=== PATIENT | male | born 1995 | race Hispanic/Latino ===

== ENCOUNTER 2017-07-24 11:59 | Emergency (ER) | payer MEDICAID ==
[2017-07-24] MEDS ORDERED: Lidocaine 1% 50 ML MDV INJECT ONE (12:17)
--- NOTE | 2017-07-24 12:22 | EDM.PDOC ---
ED HPI GENERAL MEDICAL PROBLEM - General Chief Complaint: Lower Extremity Injury/Pain Stated Complaint: BLOW DART STUCK IN FOOT Time Seen by Provider: 07/24/17 12:18 Source of Information: Reports: Patient History Limitations: Reports: No Limitations - History of Present Illness INITIAL COMMENTS - FREE TEXT/NARRATIVE: Patient is a 21-year-old male presents ED complaining of a blow dark impaled to the left calcaneus. Patient states he accidentally impaled himself when moving his foot away from a puppy that was biting his foot. Patient did consume some alcohol and attempted to remove with no prevail. Pain is minimal. Denies any sensory/motor deficits distally. Tetanus status up-to-date. He offers no additional complaints. Left Posterior Feet Pain Score (Numeric/FACES): 8 - Related Data Allergies Allergy/AdvReac Type Severity Reaction Status Date / Time No Known Allergies Allergy Verified 12/19/16 04:52 Past Medical History Gastrointestinal History: Reports: Gastritis, Helicobacter Pylori Psychiatric History: Reports: Anxiety, Depression - Past Surgical History GI Surgical History: Reports: Cholecystectomy, Colonoscopy Other GI Surgeries/Procedures: patient treated with protonix for 3 months. Social & Family History - Tobacco Use Smoking Status *Q: Current Every Day Smoker Years of Tobacco use: 2 Packs/Tins Daily: 1 Used Tobacco, but Quit: No - Caffeine Use Caffeine Use: Reports: None - Recreational Drug Use Recreational Drug Use: Yes Recreational Drug Type: Reports: Marijuana/Hashish Recreational Drug Use Frequency: Daily Review of Systems - Review of Systems Review Of Systems: ROS reveals no pertinent complaints other than HPI. ED EXAM, GENERAL - Physical Exam Exam: See Below Exam Limited By: No Limitations General Appearance: Alert, WD/WN, No Apparent Distress Ears: Hearing Grossly Normal Nose: Normal Inspection Throat/Mouth: Normal Voice, No Airway Compromise Neck: Normal Inspection, Supple Respiratory/Chest: No Respiratory Distress, No Accessory Muscle Use Cardiovascular: Normal Peripheral Pulses, Regular Rate, Rhythm Peripheral Pulses: 2+: Posterior Tibial (L) Extremities: Other (Bloated or measuring approximately 5 inches impaled in the left heel.4 inches sticking out. No sensory motor deficits distally. Pain localized. No redness, purulent drainage, or significant swelling present.) Neurological: Alert, Oriented, CN II-XII Intact, Normal Cognition, No Motor/ Sensory Deficits Psychiatric: Normal Affect, Normal Mood Skin Exam: Warm, Dry, Normal Color Course - Vital Signs Last Recorded V/S: Last Vital Signs Temp 98 F 07/24/17 12:07 Pulse 96 07/24/17 12:07 Resp 18 07/24/17 12:07 BP 146/90 H 07/24/17 12:07 Pulse Ox 99 07/24/17 12:07 - Orders/Labs/Meds Orders: Active Orders 24 hr Category Date Time Status Calcaneous Lt [CR] Stat Exams 07/24/17 12:17 Taken Meds: Medications Discontinued Medications Generic Name Dose Route Start Last Admin Trade Name Rocio PRN Reason Stop Dose Admin Cephalexin 500 mg 07/24/17 13:22 07/24/17 13:43 Keflex PO 07/24/17 13:23 500 mg ONETIME ONE Administration Lidocaine HCl 50 ml 07/24/17 12:17 07/24/17 12:56 Xylocaine 1% INJECT 07/24/17 12:18 50 ml ONETIME ONE Administration - Re-Assessments/Exams Free Text/Narrative Re-Assessment/Exam: Tetanus status up-to-date. Ordered lidocaine and x-ray of the left calcaneus. Site was anesthetized with 1% lidocaine in a wheel pattern utilizing approximately 8 mls of solution. X-ray revealed arrow shaped blow dart embedded in the soft tissue no bony involvement. Attempted to pull the blow dart out with no success. Had to make small incision to the lateral and medial aspect of the shaft of the blow dart prior to removing to the cut tissue away. Allowing to pullout with issues. Bleeding minimal. No complications. Wound will be irrigated by nursing staff. Dressing applied. No sutures required. Will allow to heal by secondary intentions. Ordered Keflex 500 mg by mouth. Will discharge patient home with instructions as documented. Departure - Departure Time of Disposition: 13:23 Disposition: Home, Self-Care 01 Condition: Good Clinical Impression: Foreign body in foot Qualifiers: Encounter type: initial encounter Laterality: left Qualified Code(s): S90.852A - Superficial foreign body, left foot, initial encounter - Discharge Information Referrals: PCP,None [Primary Care Provider] - Forms: ED Department Discharge Additional Instructions: Cleanse site twice daily with soap and water, pat dry, reapply traumatic ointment, and dressing. Wound will have to heal by secondary intentions from inside out. Keep area clean and dry. Do not soak wound. Take the full course of Keflex as prescribed. Utilize Tylenol and ibuprofen in alternating fashion for pain. Return to the ED for any new or worsening symptoms. - My Orders Last 24 Hours: My Active Orders 07/24/17 12:17 Calcaneous Lt [CR] Stat - Assessment/Plan Last 24 Hours: My Active Orders 07/24/17 12:17 Calcaneous Lt [CR] Stat
[2017-07-24 12:27] VITALS: BP 146/90
[2017-07-24] MEDS ORDERED: Cephalexin 500 MG Cap PO ONE (13:22)
--- NOTE | 2017-07-25 07:41 | CR ---
Left calcaneus: Two views of the left calcaneus are obtained. Arrow is seen which presumably represents the metallic foreign body as noted in the clinical history. No acute bony abnormality is identified. Impression: 1. Metallic foreign body within the soft tissues of the left calcaneus. 2. No acute bony abnormality is identified. Diagnostic code #3
== END 2017-07-24 13:50 | disposition home or self-care (01) ==
LOC: JD.ED 11:59
DX: S90.852A Superficial foreign body, left foot, initial encounter (principal); F17.210 Nicotine dependence, cigarettes, uncomplicated; Z90.49 Acquired absence of other specified parts of digestive tract; W45.8XXA Other foreign body or object entering through skin, initial encounter
CPT/HCPCS: 28192; 73650; 99284; A9270; 99283

== ENCOUNTER 2018-01-21 00:03 | Emergency (ER) | payer SELFPAY ==
[2018-01-21 00:11] VITALS: BP 132/77
[2018-01-21] MEDS ORDERED: Pantoprazole 40 MG Vial IVPUSH ONE (00:29)
[2018-01-21] MEDS ORDERED: Sodium Chloride 0.9% 1,000 ML IV SCH (00:30)
[2018-01-21] MEDS ORDERED: Ondansetron 4 MG/2 ML SDV IVPUSH ONE (00:32)
--- NOTE | 2018-01-21 00:34 | EDM.PDOC ---
ED HPI GENERAL MEDICAL PROBLEM - General Chief Complaint: Gastrointestinal Problem Stated Complaint: [facility] Time Seen by Provider: 01/21/18 00:15 Source of Information: Reports: Patient History Limitations: Reports: No Limitations - History of Present Illness INITIAL COMMENTS - FREE TEXT/NARRATIVE: This is a 22-year-old male. He has a history of an upper GI bleed thought to be due to H. pylori. He was on antibiotics for that and seemed to clear it up. He was seen about a year ago for another episode of upper GI bleed placed on Prilosec and I believe another course of antibiotics. Tonight around 11:45 PM he had an episode of vomiting up fresh blood. He apparently has been very stressed out since January 12 where he was arrested for a felony but he didn't tell me what felony. He does have fresh cut rucker to his left forearm and he says is due to this being arrested. He complains of centralized burning in his chest. She denies any nausea at this time. He denies any black or tarry looking stools. No significant cough no fever no chills no upper respiratory symptoms. Chest Pain Score (Numeric/FACES): 7 - Related Data Allergies Allergy/AdvReac Type Severity Reaction Status Date / Time No Known Allergies Allergy Verified 01/21/18 00:12 Home Meds: Home Meds Doxycycline [Vibramycin] 100 mg PO BID #28 tab 01/21/18 [Rx] Omeprazole 40 mg PO BID #28 cap.sr 01/21/18 [Rx] Ondansetron HCl [Zofran] 4 mg PO Q8H PRN #12 ml 01/21/18 [Rx] metroNIDAZOLE [Flagyl] 500 mg PO Q12H #28 tab 01/21/18 [Rx] Past Medical History Gastrointestinal History: Reports: Gastritis, Helicobacter Pylori Psychiatric History: Reports: Anxiety, Depression - Past Surgical History HEENT Surgical History: Reports: Tonsillectomy GI Surgical History: Reports: Cholecystectomy, Colonoscopy Other GI Surgeries/Procedures: patient treated with protonix for 3 months. Social & Family History - Tobacco Use Smoking Status *Q: Current Every Day Smoker Years of Tobacco use: 2 Packs/Tins Daily: 1 Used Tobacco, but Quit: No - Caffeine Use Caffeine Use: Reports: None - Recreational Drug Use Recreational Drug Use: Yes Recreational Drug Type: Reports: Marijuana/Hashish Recreational Drug Use Frequency: Daily ED ROS GENERAL - Review of Systems Review Of Systems: See Below Constitutional: Denies: Fever, Chills HEENT: Reports: No Symptoms Respiratory: Reports: Cough. Denies: Shortness of Breath, Wheezing Cardiovascular: Reports: Chest Pain Endocrine: Reports: No Symptoms GI/Abdominal: Reports: Abdominal Pain, Hematemesis, Nausea, Vomiting. Denies: Black Stool, Bloody Stool, Diarrhea : Reports: No Symptoms Musculoskeletal: Reports: No Symptoms Skin: Reports: No Symptoms Neurological: Reports: No Symptoms Psychiatric: Reports: No Symptoms Hematologic/Lymphatic: Reports: No Symptoms ED EXAM, GI/ABD - Physical Exam Exam: See Below Exam Limited By: No Limitations General Appearance: Alert, WD/WN, No Apparent Distress Eyes: Bilateral: Normal Appearance Ears: Normal External Exam, Normal Canal, Normal TMs Nose: Normal Inspection Throat/Mouth: Normal Inspection, Normal Lips, Normal Oropharynx, Normal Voice, No Airway Compromise Head: Normocephalic Neck: Supple Respiratory/Chest: No Respiratory Distress, Lungs Clear, Normal Breath Sounds Cardiovascular: Regular Rate, Rhythm, No Murmur GI/Abdominal Exam: Soft, Other (Mild epigastric soreness on palpation but no lower abdominal tenderness, no guarding rigidity or rebound noted. He is not distended.) Back Exam: Full Range of Motion Extremities: Normal Range of Motion, Other (Noted on his left forearm he has about 12-15 2-3 inch long superficial lacerations that appear to be several days old. He denies any cutting on any other extremity.) Neurological: Alert, Oriented Psychiatric: Anxious Skin Exam: Warm, Dry Course - Vital Signs Last Recorded V/S: Last Vital Signs Temp 97.7 F 01/21/18 00:08 Pulse 70 01/21/18 00:08 Resp 18 01/21/18 00:08 BP 132/77 01/21/18 00:08 Pulse Ox 97 01/21/18 00:08 - Orders/Labs/Meds Orders: Active Orders 24 hr Category Date Time Status Sodium Chloride 0.9% [Normal Saline] 1,000 ml Med 01/21/18 00:30 Active IV ASDIRECTED Medication Orders Sodium Chloride (Normal Saline) 1,000 mls @ 1,000 mls/hr IV ASDIRECTED ALTON Last Admin: 01/21/18 00:44 Dose: 1,000 mls/hr Labs: Laboratory Tests 01/21/18 01/21/18 01/21/18 Range/Units 00:25 00:25 00:25 WBC 14.57 H (4.23-9.07) K/mm3 RBC 4.96 (4.63-6.08) M/mm3 Hgb 15.3 (13.7-17.5) gm/L Hct 44.2 (40.1-51.0) % MCV 89.1 (79.0-92.2) fl MCH 30.8 (25.7-32.2) pg MCHC 34.6 (32.2-35.5) g/dl RDW Std Deviation 41.6 (35.1-43.9) fL Plt Count 295 (163-337) K/mm3 MPV 9.9 (9.4-12.3) fl Neut % (Auto) 68.7 H (34.0-67.9) % Lymph % (Auto) 19.6 L (21.8-53.1) % [place] % (Auto) 8.7 (5.3-12.2) % Eos % (Auto) 2.5 (0.8-7.0) Baso % (Auto) 0.2 (0.1-1.2) % Neut # (Auto) 9.99 H (1.78-5.38) K/mm3 Lymph # (Auto) 2.86 (1.32-3.57) K/mm3 [place] # (Auto) 1.27 H (0.30-0.82) K/mm3 Eos # (Auto) 0.37 (0.04-0.54) K/mm3 Baso # (Auto) 0.03 (0.01-0.08) K/mm3 Manual Slide Review Normal smear Sodium 140 (136-145) mEq/L Potassium 3.5 (3.5-5.1) mEq/L Chloride 104 (98-107) mEq/L Carbon Dioxide 27 (21-32) mEq/L Anion Gap 12.5 (5-15) BUN 10 (7-18) mg/dL Creatinine 0.9 (0.7-1.3) mg/dL Est Cr Clr Drug Dosing 152.22 mL/min Estimated GFR (MDRD) > 60 (>60) mL/min BUN/Creatinine Ratio 11.1 L (14-18) Glucose 97 (74-106) mg/dL Calcium 9.3 (8.5-10.1) mg/dL Total Bilirubin 0.3 (0.2-1.0) mg/dL AST 26 (15-37) U/L ALT 32 (16-63) U/L Alkaline Phosphatase 104 (46-116) U/L Total Protein 7.4 (6.4-8.2) g/dl Albumin 4.1 (3.4-5.0) g/dl Globulin 3.3 gm/dL Albumin/Globulin Ratio 1.2 (1-2) Lipase 177 (73-393) U/L H. pylori IgG Antibody Positive H (NEGATIVE) Meds: Medications Generic Name Dose Route Start Last Admin Trade Name Freq PRN Reason Stop Dose Admin Sodium Chloride 1,000 mls @ 1,000 mls/hr 01/21/18 00:30 01/21/18 00:44 Normal Saline IV 1,000 mls/hr ASDIRECTED ALTON Administration Discontinued Medications Generic Name Dose Route Start Last Admin Trade Name Freq PRN Reason Stop Dose Admin Metronidazole 500 mg/ Premix 100 mls @ 100 mls/hr 01/21/18 01:23 01/21/18 01: 28 IV 01/21/18 02:22 100 mls/hr ONETIME ONE Administration Ondansetron HCl 4 mg 01/21/18 00:32 01/21/18 00:44 Zofran IVPUSH 01/21/18 00:33 4 mg ONETIME ONE Administration Pantoprazole Sodium 80 mg 01/21/18 00:29 01/21/18 00:46 Protonix Iv IVPUSH 01/21/18 00:30 80 mg .BOLUS ONE Administration - Re-Assessments/Exams Free Text/Narrative Re-Assessment/Exam: 01/21/18 02:41 I spoke to the patient regarding his lab results and return of H. pylori. I'll give him instructions on how to take the antibiotics and use the Pepto-Bismol and the omeprazole. Encouraged him to drink lots of fluids but avoids sodas spices and alcohol. He continues to have problems especially vomiting blood he is to return to the ER. Departure - Departure Time of Disposition: 02:41 Disposition: Home, Self-Care 01 Condition: Fair Clinical Impression: Dyspepsia, Upper GI bleed, H pylori ulcer - Discharge Information Prescriptions: Doxycycline [Vibramycin] 100 mg PO BID #28 tab metroNIDAZOLE [Flagyl] 500 mg PO Q12H #28 tab Omeprazole 40 mg PO BID #28 cap.sr Ondansetron HCl [Zofran] 4 mg PO Q8H PRN #12 ml PRN Reason: Nausea Referrals: PCP,None [Primary Care Provider] - Forms: ED Department Discharge Additional Instructions: To treat the H pylori that is causing your stomach to bleed you must take four things: Get some Pepto-Bismol and with the dosing cup to take half a dosing cups twice a day You will be placed on omeprazole 40 mg twice a day Flagyl 500 mg twice a day Doxycycline 100 mg twice a day You will continue this for at least 14 days to eradicate the H. pylori. He will also be given some Zofran to help with the nausea and vomiting, expect to have some black looking stools over the next couple of days, if you start having more bright red blood when you're vomiting return to the ER or follow up with your family doctor. - My Orders Last 24 Hours: My Active Orders 01/21/18 00:30 Sodium Chloride 0.9% [Normal Saline] 1,000 ml IV ASDIRECTED - Assessment/Plan Last 24 Hours: My Active Orders 01/21/18 00:30 Sodium Chloride 0.9% [Normal Saline] 1,000 ml IV ASDIRECTED
[2018-01-21] MEDS ORDERED: metroNIDAZOLE/Normal Saline 500 MG in Premix Bag 1 BAG IV ONE (01:23)
== END 2018-01-21 03:00 | disposition home or self-care (01) ==
LOC: JD.ED 00:03
DX: R10.13 Epigastric pain (principal); K92.2 Gastrointestinal hemorrhage, unspecified; A04.8 Other specified bacterial intestinal infections; F32.9 Major depressive disorder, single episode, unspecified; F17.210 Nicotine dependence, cigarettes, uncomplicated
CPT/HCPCS: 36415; 80053; 83690; 85025; 86677; 96361; 96365; 96375; 99284; C9113; J2405; J7040

== ENCOUNTER 2018-02-02 21:24 | Emergency (ER) | payer SELFPAY ==
[2018-02-02] MEDS ORDERED: Lidocaine/EPINEPHrine/Tetracaine Soln 1 ML TOP STA (21:57)
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
[2018-02-02 22:50] LABS: ACETAMINOPHEN 0 ug/mL (10-30)
[2018-02-02] MEDS ORDERED: Lidocaine/EPINEPHrine/Tetracaine Soln 1 ML TOP ONE (23:12)
[2018-02-02] MEDS ORDERED: Lidocaine/EPINEPHrine/Tetracaine Soln 1 ML ONE (23:13)
[2018-02-03] MEDS ORDERED: Bupivacaine 0.5% 10 ML SDV INJECT ONE (03:12)
[2018-02-03] MEDS ORDERED: Lidocaine 1% with EPINEPHrine 1:100,000 20 ML MDV INJECT ONE (03:12)
[2018-02-03 04:30] VITALS: BP 111/74
== END 2018-02-03 04:10 ==
LOC: JD.ED 21:24
DX: S51.812A Laceration without foreign body of left forearm, initial encounter (principal); F10.129 Alcohol abuse with intoxication, unspecified; F41.9 Anxiety disorder, unspecified; F32.9 Major depressive disorder, single episode, unspecified; Y90.6 Blood alcohol level of 120-199 mg/100 ml; X78.1XXA Intentional self-harm by knife, initial encounter; Z90.49 Acquired absence of other specified parts of digestive tract; Z79.891 Long term (current) use of opiate analgesic
CPT/HCPCS: 12002; 36415; 80053; 80306; 84443; 85025; 93005; 99285; A9270; G0480; 93010